=== PATIENT | male | born 1935 | race Caucasian/White ===

== ENCOUNTER 2018-08-25 12:09 | Inpatient (IN) | payer MEDICARE, OTHER ==
[~2018-08-25] VITALS: Ht 165.1 cm; Wt 68.0 kg
[2018-08-25 12:20] VITALS: BP 137/86
--- NOTE | 2018-08-25 13:15 | NUR ---
REASSESSED PT WITH NO SIGNIFICANT CHANGES/VITAL SIGNS STABLE.
--- NOTE | 2018-08-25 14:54 | NUR ---
PT AMBULATED TO ER BED 02
--- NOTE | 2018-08-25 15:03 | NUR ---
PATIENT PRESENTS TO ED WITH C/O LEFT AB PAIN AND LEFT BACK PAIN , POSSIBILE KIDNEY STONE SENT FROM PCP, PMH: HTN . PT IS AAOX4 WITH EVEN AND STEADY GAIT; LUNGS CLEAR BL; HR EVEN AND REGULAR; PT DENIES ANY FEVER, CP, SOB, OR COUGH AT THIS TIME; SKIN IS PINK/WARM/DRY; PATIENT STATES PAIN OF 10/10 AT THIS TIME; VSS; PATIENT POSITIONED FOR COMFORT; HOB ELEVATED; BEDRAILS UP X2; BED DOWN. ER MD MADE AWARE OF PT STATUS.
--- NOTE | 2018-08-25 15:07 | NUR ---
Patient being evaluated by DR. PIZANO at bedside.
[2018-08-25] MEDS ORDERED: NACL 0.9% 1,000 ML IV ONE (15:14)
[2018-08-25] MEDS ORDERED: NACL 0.9% 1,000 ML IV SCH (15:14)
[2018-08-25] MEDS ORDERED: ONDANSETRON 4 MG/2 ML VIAL IVP ONE (15:15)
[2018-08-25] MEDS ORDERED: KETOROLAC 15 MG/ML VIAL IVP ONE (15:15)
[2018-08-25 15:52] LABS: BASOPHILS % (AUTO) 0.3 % (0.0-2.0); EOSINOPHILS % (AUTO) 0.1 % (0.0-4.0); HEMATOCRIT 39.7 % (36-52); HEMOGLOBIN 12.9 g/dL (12.0-18.0); MEAN CORPUSCULAR HEMOGLOBIN 31 pg (27-31); MEAN CORPUSCULAR HGB CONC 33 g/dL (33-37); MEAN CORPUSCULAR VOLUME 95.7 fL (80-94); MONOCYTES % (AUTO) 7.9 % (1.7-9.3); NEUTROPHILS # (AUTO) 10.1 K/uL (1.8-7.7); NEUTROPHILS % (AUTO) 83.7 % (42.2-75.2); PLATELET COUNT (AUTO) 111 K/uL (140-450); RED BLOOD CELL COUNT(AUTO) 4.15 MIL/uL (4.20-6.10); RED CELL DISTRIBUTION WIDTH 13.3 % (11.6-13.7); WHITE BLOOD COUNT (AUTO) 12.1 K/uL (4.8-10.8)
--- NOTE | 2018-08-25 15:56 | NUR ---
UA AND BLOOD SENT TO LAB
[2018-08-25] MEDS: MORPHINE SULFATE 2 MG/ML SYR IVP ONE ×2 (16:05→17:00)
--- NOTE | 2018-08-25 16:10 | NUR ---
PT IS TAKEN TO CT.
[2018-08-25 16:18] LABS: APPEARANCE,URINE CLEAR (CLEAR); BILIRUBIN,URINE 1+ (NEGATIVE); BLOOD, URINE 3+ (NEGATIVE); COLOR,URINE YELLOW (YELLOW); LEUKOCYTE ESTERASE ,URINE NEGATIVE (NEGATIVE); NITRITE, URINE NEGATIVE (NEGATIVE); PH,URINE 5.5 (5.0-9.0); UGLUCOSE NEGATIVE (NEGATIVE)
[2018-08-25 16:21] LABS: ANION GAP 14.1 (8-16); CARBON DIOXIDE 22.7 mmol/L (21-32); CHLORIDE 105 mmol/L (98-107); CREATININE 1.7 mg/dL (0.7-1.3); GLUCOSE 107 mg/dL (74-106); POTASSIUM 4.8 mmol/L (3.5-5.1); SODIUM SERUM 137 mmol/L (136-145); UREA NITROGEN, BLOOD 23 mg/dL (7-18)
[2018-08-25 16:26] LABS: ALBUMIN 3.7 g/dL (3.4-5.0); AMYLASE 63 U/L (25-115); ASPARTATE AMINOTRANSFERASE 16 U/L (15-37); LIPASE 249 U/L (73-393); MAGNESIUM 2.2 mg/dL (1.8-2.4); TOTAL BILIRUBIN 2.1 mg/dL (0.0-1.0)
[2018-08-25 17:02] LABS: RBC,URINE 11-20 (MOD) /HPF (0-5); WBC,URINE NONE SEEN /HPF (0-5)
[2018-08-25] MEDS ORDERED: METOCLOPRAMIDE 10 MG/2 ML INJ VIAL IVP ONE (17:55)
[2018-08-25] MEDS ORDERED: MORPHINE SULFATE 4 MG/ML SYR IM ONE (17:55)
[2018-08-25] MEDS ORDERED: MORPHINE SULFATE 2 MG/ML SYR IVP PRN (18:20)
[2018-08-25] MEDS ORDERED: ONDANSETRON 4 MG/2 ML VIAL IM/IVP PRN (18:20)
[2018-08-25] MEDS ORDERED: DOCUSATE SODIUM 100 MG GELCAP PO PRN (18:20)
[2018-08-25] MEDS ORDERED: ACETAMINOPHEN 325 MG TAB PO PRN (18:20)
--- NOTE | 2018-08-25 18:49 | NUR ---
IVP MEDS GIVEN GIVEN FOR PAIN 12/17-NADR AT THIS TIME. PAIN POST IVP MEDS NOW 07/20. NSR W/O ECT, FAMILY AT BEDSIDE. PT AWITING ADMIT TO [facility] MED/SURG
--- NOTE | 2018-08-25 18:57 | NUR ---
Pt transferred to Med/Surg via BED WITH ZACKARY DUGGAN.
[2018-08-25] MEDS ORDERED: [UNRECOGNIZED DRUG - CODE] PO (18:58)
[2018-08-25] MEDS ORDERED: TAMS0.4C96 PO (18:58)
[2018-08-25] MEDS: NACL 0.9% 1,000 ML IV SCH (19:05)
--- NOTE | 2018-08-25 19:05 | NUR ---
Pt transferred to Med/Surg ROOM 112A via GURNEY, REPORT GIVEN TO ZACKARY GATICA AT BEDSIDE. PT IS IN STABLE CONDITION AT THIS TIME, ALL BELONGINGS GOES WITH PT.
--- NOTE | 2018-08-25 19:05 | NUR ---
RECEIVED REPORT FROM BAGGAGEMANZACKARY DUGGAN FOR CONTINUITY OF CARE. PT IS A/OX4, ON ROOM AIR. PT ABLE TO MAKE NEEDS KNOWN, AND ABLE TO FOLLOW COMMANDS. PT AMBULATES WITH STEADY GAIT. PT SKIN IS INTACT. PT HAS A 18G IV TO RIGHT AC, ASYMPTOMATIC AND INTACT. VITAL SIGNS WITHIN NORMAL LIMITS. PT STABLE, DENIES PAIN, NO SIGNS OF DISTRESS NOTED AT THIS TIME. PT POSITIONED FOR COMFORT. BED IN LOWEST POSITION, BED ALARM ON. WILL CONTINUE TO MONITOR. OBTAINED MRSA SWAB AND SENT TO LAB.
[2018-08-25] MEDS ORDERED: KETOROLAC 15 MG/ML VIAL IVP PRN (19:10)
[2018-08-25 19:17] LABS: CHOL/HDL RATIO 3.2 (1-4.5); THYROID STIMULATING HORMONE 1.22 uIU/mL (0.34-3.74)
[2018-08-25 19:25] LABS: PROTHROMBIN TIME 9.9 secs (10.8-13.4)
[2018-08-25 20:00] VITALS: BP 110/83
[2018-08-25] MEDS ORDERED: TAMSULOSIN 0.4 MG CAP PO SCH (20:00)
[2018-08-25] MEDS ORDERED: AMLO-372 PO (20:12)
--- NOTE | 2018-08-25 20:20 | NUR ---
PT ASKED FOR FOOD. OBTAINED SANDWICH FROM ENVIRONMENTAL PROGRAM MANAGER AND GAVE TO PT ALONG WITH WATER AND JUICE.
[2018-08-25] MEDS ORDERED: VALSARTAN 80 MG TAB PO SCH (20:30)
[2018-08-25] MEDS ORDERED: amLODIPine 5 MG TAB PO SCH (20:30)
[2018-08-25] MEDS ORDERED: amLODIPine 5 MG TAB ONE (21:22)
[2018-08-25] MEDS: TAMSULOSIN 0.4 MG CAP PO SCH (21:28)
--- NOTE | 2018-08-25 21:30 | NUR ---
ADMINISTERED SCHEDULED MEDICATIONS, PT TOLERATED WELL. VALSARTAN NOT AVAILABLE IN UNIT, CURRENCY MACHINE OPERATOR WAS CALLED AND HE WILL TRY TO BRING MEDICATION IF AVAILABLE.
--- NOTE | 2018-08-25 22:11 | NUR ---
RESIDENTIAL PROGRAM WORKER INFORMED ME MEDICATION WAS NOT AVAILABLE. PT STATES HE USUALLY ONLY TAKES ONE B/P MEDICATION AND FEELS MORE COMFORTABLE THAT WAY.
[2018-08-26] VITALS: BP 107/56
--- NOTE | 2018-08-26 | NUR ---
VITAL SIGNS WITHIN NORMAL LIMITS. PT STABLE, DENIES PAIN, NO SIGNS OF DISTRESS NOTED AT THIS TIME. PT POSITIONED FOR COMFORT. BED IN LOWEST POSITION, BED ALARM ON. WILL CONTINUE TO MONITOR.
--- NOTE | 2018-08-26 03:15 | NUR ---
NO SIGNS OF DISTRESS NOTED AT THIS TIME. BED IN LOWEST POSITION, BED ALARM ON. WILL CONTINUE TO MONITOR.
[2018-08-26] MEDS: NACL 0.9% 1,000 ML IV SCH ×3 (05:30→23:23)
--- NOTE | 2018-08-26 05:45 | NUR ---
INSTRUCTED PT ON STRAINING URINE AND REASON BEHIND IT. PT VERBALIZED UNDERSTANDING.
--- NOTE | 2018-08-26 06:30 | NUR ---
PT CALLED FOR "BEEPING IV". IV PUMP ALARM SAID PRESSURE HIGH SO INSTRUCTED PT TO KEEP ARM STRAIGHT DUE TO POSITION OF IV AT AC. PT VERBALIZED UNDERSTANDING.
[2018-08-26 06:40] LABS: BASOPHILS # (AUTO) 0.1 K/uL (0.00-0.22); BASOPHILS % (AUTO) 0.7 % (0.0-2.0); EOSINOPHILS # (AUTO) 0.1 K/uL (0-0.4); EOSINOPHILS % (AUTO) 1.6 % (0.0-4.0); HEMATOCRIT 35.8 % (36-52); LYMPHOCYTES # (AUTO) 1.3 K/uL (2.0-11.5); MEAN CORPUSCULAR HEMOGLOBIN 32 pg (27-31); MEAN CORPUSCULAR HGB CONC 34 g/dL (33-37); MEAN CORPUSCULAR VOLUME 95.8 fL (80-94); MONOCYTES # (AUTO) 0.7 K/uL (0.8-1.0); MONOCYTES % (AUTO) 8.5 % (1.7-9.3); NEUTROPHILS # (AUTO) 5.5 K/uL (1.8-7.7); NEUTROPHILS % (AUTO) 72.2 % (42.2-75.2); PLATELET COUNT (AUTO) 98 K/uL (140-450); RED BLOOD CELL COUNT(AUTO) 3.74 MIL/uL (4.20-6.10); RED CELL DISTRIBUTION WIDTH 13.1 % (11.6-13.7); WHITE BLOOD COUNT (AUTO) 7.7 K/uL (4.8-10.8)
[2018-08-26 06:43] LABS: ANION GAP 12.9 (8-16); CHLORIDE 109 mmol/L (98-107); CREATININE 1.9 mg/dL (0.7-1.3); GLUCOSE 92 mg/dL (74-106); MAGNESIUM 2.1 mg/dL (1.8-2.4); PHOSPHORUS 3.1 mg/dL (2.5-4.9); POTASSIUM 4.9 mmol/L (3.5-5.1); SODIUM SERUM 141 mmol/L (136-145); UREA NITROGEN, BLOOD 25 mg/dL (7-18)
--- NOTE | 2018-08-26 07:15 | NUR ---
ENDORSED PT TO DAY SHIFT ZACKARY ALLEN FOR CONTINUITY OF CARE. PT IN STABLE CONDITION.
--- NOTE | 2018-08-26 07:17 | NUR ---
RECEIVED BEDSIDE REPORT FROM HALAL MEAT PACKER NURSE CONTINUITY OF CARE. A/OX4, ON ROOM AIR. DENIES PAIN. NO DISTRESS NOTED AT INITIAL ASSESSMENT. PT ABLE TO MAKE NEEDS KNOWN, AND ABLE TO FOLLOW COMMANDS. SKIN INTACT AND CLEAN. IV ON RAC 18G, ASYMPTOMATIC AND PATENT, INFUSING PER MD ORDER. ABLE AMBULATES WITH STEADY GAIT. VITAL SIGNS TAKEN. PT POSITIONED FOR COMFORT AND READY FOR BREAKFAST. URANAL AT BEDSIDE. INSTRUCTED PATIENT TO USE URANAL FOR URINATION FOR STRAIN URINE. PATIENT VERBALIZED UNDERSTANDING. DISCUSSED PLAN OF CARE WITH PATIENT, PATIENT VERBALIZED UNDERSTANDING. BED IN LOW POSITION AND CALL LIGHT WITHIN REACH. EDUCATED PATIENT TO USE CALL LIGHT FOR ANY ASSISTANCE.
[2018-08-26 08:00] VITALS: BP 127/68
--- NOTE | 2018-08-26 08:49 | NUR ---
PATIENT HAS BEEN SCREENED AND CATEGORIZED MODERATE NUTRITION RISK. PATIENT WILL BE SEEN WITHIN 3-5 DAYS OF ADMISSION. 08/28/18[address]
[2018-08-26] MEDS ORDERED: KETOROLAC 15 MG/ML VIAL IVP SCH (08:55)
[2018-08-26] MEDS ORDERED: LACTOBACILLUS RHAMNOSUS GG 1 EACH CAP PO SCH (09:04)
[2018-08-26] MEDS: amLODIPine 5 MG TAB PO SCH (09:41)
[2018-08-26] MEDS: VALSARTAN 80 MG TAB PO SCH (09:41)
--- NOTE | 2018-08-26 09:45 | NUR ---
ADMINISTERED MEDS PER MD ORDER. PATIENT TOLERATED WELL. PATIENT IS SITTING UP ON BED AND WATCHING TV. DENIES PAIN. NO SIGNS OF DISTRESS NOTED. EMPTIED 200ML URINE FROM URANAL INTO A STRAINER. NO CALCULUS OBSERVED.
[2018-08-26] MEDS: HYDROcodone/APAP 7.5/325 MG 1 TAB PO PRN ×2 (10:17→15:52)
--- NOTE | 2018-08-26 10:17 | NUR ---
PATIENT COMPLAINED OF 4/10 PAIN. ADMINISTERED PRN PAIN MED. BED POSITIONED COMFORTABLY. AND PATIENT SAID THAT HE IS TRYING TO GET SOME REST.
--- NOTE | 2018-08-26 11:20 | NUR ---
PATIENT IS RESTING ON BED. HE STATES THAT "MY PAIN IS GETTING BETTER. IT'S LEVEL 1. I AM OK WITH IT." NO SIGNS OF DISTRESS NOTED.
[2018-08-26] MEDS ORDERED: MORPHINE SULFATE 4 MG/ML SYR IVP PRN (12:50)
--- NOTE | 2018-08-26 12:54 | NUR ---
PATIENT IS SITTING UP ON BED AND TALKING TO VISITORS AT BEDSIDE. DENIES PAIN. NO SIGNS OF DISTRESS NOTED.
--- NOTE | 2018-08-26 14:42 | NUR ---
PATIENT TOOK A SHOWER WITH ASSIST FROM NOLBERTO. PATIENT DENIES PAIN. NO SIGNS OF DISTRESS NOTED.
--- NOTE | 2018-08-26 15:00 | NUR ---
EMPTIED 100ML URINE FROM URANAL INTO A STRAINER. NO CALCULUS OBSERVED. PATIENT'S FAMILY IS AT BEDSIDE AND TALKING TO PATIENT. PATIENT DENIES PAIN.
--- NOTE | 2018-08-26 15:53 | NUR ---
PATIENT COMPLAINED OF PAIN 4. ADMINISTERED PRN PAIN MED. NOLBERTO AND DAUGHTER KATE ARE AT BEDSIDE.
[2018-08-26 16:00] VITALS: BP 144/72
--- NOTE | 2018-08-26 16:49 | NUR ---
IV ON R AC INFILTRATED, D/C IV, CANNULA INTACT, NO BLEEDING AT INSERT SITE. STARTED IV ON L HAND 22G, ASYMPTOMATIC AND PATENT, INFUSING PER MD ORDER. PATIENT TOLERATED WELL.
--- NOTE | 2018-08-26 17:21 | NUR ---
DR HERNÁNDEZ IS TALKING TO PATIENT AT BEDSIDE.
[2018-08-26] MEDS: KETOROLAC 15 MG/ML VIAL IVP SCH ×2 (18:00→23:20)
--- NOTE | 2018-08-26 19:03 | NUR ---
ENDORSED PATIENT AT BEDSIDE TO BRIM GREASER OPERATOR NURSE FOR CONTINUITY OF CARE. PATIENT IS IN STABLE CONDITION.
--- NOTE | 2018-08-26 19:07 | NUR ---
RECEIVED ENDORSEMENT FROM AM SHIFT RN; PATIENT A/Ox4, ABLE TO MAKE NEEDS KNOWN AND AMBULATORY. PATIENT SITTING ON BEDSIDE TALKING WITH RELATIVES. INTRODUCED SELF, UPDATED BOARD. NO SOB OR DISTRESS NOTED. IV SITE ON LEFT HAND, 22 GAUGE, INTACT. SKIN INTACT. INSTRUCTED PATIENT TO USE URANAL FOR URINATION. PATIENT VERBALIZED UNDERSTANDING. DISCUSSED PLAN OF CARE WITH PATIENT, PATIENT VERBALIZED UNDERSTANDING. BED IN LOW POSITION, CALL LIGHT WITHIN REACH. INITIAL ASSESSMENT DONE. WILL CONTINUE TO MONITOR.
--- NOTE | 2018-08-26 21:00 | NUR ---
DUE MEDS GIVEN, WATCHING TV. NO DISTRESS NOTED.
[2018-08-26] MEDS: TAMSULOSIN 0.4 MG CAP PO SCH (21:13)
--- NOTE | 2018-08-26 22:10 | NUR ---
ROUNDS MADE, PATIENT WATCHING TV, NO DISTRESS NOTED.
--- NOTE | 2018-08-26 23:31 | NUR ---
DUE MEDS GIVEN AND IVF REPLENISHED. PATIENT WATCHING TV.
[2018-08-27] VITALS: BP 122/74
--- NOTE | 2018-08-27 01:50 | NUR ---
FREQUENT CHECKS MADE. PATIENT ASLEEP, NO DISTRESS NOTED.
--- NOTE | 2018-08-27 04:02 | NUR ---
CHECKS MADE. PATIENT ASLEEP, VISIBLE CHEST RISE AND FALL NOTED.
[2018-08-27] MEDS: KETOROLAC 15 MG/ML VIAL IVP SCH ×2 (06:00→12:00)
[2018-08-27 07:09] LABS: BASOPHILS % (AUTO) 0.7 % (0.0-2.0); EOSINOPHILS # (AUTO) 0.2 K/uL (0-0.4); EOSINOPHILS % (AUTO) 2.8 % (0.0-4.0); HEMATOCRIT 39.1 % (36-52); HEMOGLOBIN 13.2 g/dL (12.0-18.0); LYMPHOCYTES # (AUTO) 1.4 K/uL (2.0-11.5); LYMPHOCYTES % (AUTO) 20.4 % (20.5-51.1); MEAN CORPUSCULAR HEMOGLOBIN 33 pg (27-31); MEAN CORPUSCULAR HGB CONC 34 g/dL (33-37); MEAN CORPUSCULAR VOLUME 97.1 fL (80-94); MONOCYTES # (AUTO) 0.6 K/uL (0.8-1.0); MONOCYTES % (AUTO) 8.8 % (1.7-9.3); NEUTROPHILS # (AUTO) 4.8 K/uL (1.8-7.7); NEUTROPHILS % (AUTO) 67.3 % (42.2-75.2); PLATELET COUNT (AUTO) 99 K/uL (140-450); RED BLOOD CELL COUNT(AUTO) 4.03 MIL/uL (4.20-6.10); WHITE BLOOD COUNT (AUTO) 7.1 K/uL (4.8-10.8)
--- NOTE | 2018-08-27 07:50 | NUR ---
RECEIVED BEDSIDE REPORT FROM SOFT WORK WRAPPER EXAMINER NURSE. PATIENT AAOX4. PATIENT ON ROOM AIR, NO DISTRESS NOTED. PATIENT ON MED SURGE AND STANDARD PRECAUTIONS IN PLACE. SKIN INTACT. IV ON L HAND 22 G INFUSING NS AT 100. IV ASYMPTOMATIC PATENT AND INTACT. BED IN LOW POSITION, CALL LIGHT WITHIN REACH. WILL CONTINUE TO MONITOR.
[2018-08-27 08:00] VITALS: BP 161/77
[2018-08-27 08:04] LABS: ANION GAP 14.9 (8-16); CARBON DIOXIDE 23.6 mmol/L (21-32); CHLORIDE 109 mmol/L (98-107); CREATININE 1.4 mg/dL (0.7-1.3); GLUCOSE 87 mg/dL (74-106); POTASSIUM 4.5 mmol/L (3.5-5.1); SODIUM SERUM 143 mmol/L (136-145); UREA NITROGEN, BLOOD 22 mg/dL (7-18)
[2018-08-27 08:13] LABS: MAGNESIUM 1.9 mg/dL (1.8-2.4); PHOSPHORUS 2.9 mg/dL (2.5-4.9)
[2018-08-27] MEDS ORDERED: LACTOBACILLUS RHAMNOSUS GG 1 EACH CAP PO SCH (09:00)
[2018-08-27] MEDS: amLODIPine 5 MG TAB PO SCH (09:00)
[2018-08-27] MEDS: VALSARTAN 80 MG TAB PO SCH (09:00)
--- NOTE | 2018-08-27 09:30 | NUR ---
ADMINISTERED SCHEDULED MEDS. PATIENT TOLERATED WELL. WILL CONTINUE TO MONITOR.
[2018-08-27] MEDS ORDERED: ACET-1182 PO (09:56)
[2018-08-27] MEDS ORDERED: VALS80TA2 PO (09:56)
[2018-08-27] MEDS: NACL 0.9% 1,000 ML IV SCH (10:19)
[2018-08-27] MEDS ORDERED: VITAMIN D 400 IU TAB PO SCH (10:35)
--- NOTE | 2018-08-27 12:18 | NUR ---
FAMILY AT BEDSIDE. PATIENT ON ROOM AIR, NO DISTRESS NOTED. WILL CONTINUE TO MONITOR.
--- NOTE | 2018-08-27 13:40 | NUR ---
BP 135/74 AND HR 83. PATIENT RESTING WITH FAMILY AT BEDSIDE. DOCTOR AWARE OF STABLE BP. WILL CONTINUE TO MONITOR.
[2018-08-27] MEDS ORDERED: DOCU-299 PO (13:46)
--- NOTE | 2018-08-27 13:54 | NUR ---
PER REQUEST OF KAMI FROM [facility], FAXED DISCHARGE SUMMARY TO HER AT [phone].
[2018-08-27] MEDS ORDERED: BISACODYL 5 MG TABEC PO SCH (14:00)
--- NOTE | 2018-08-27 15:49 | NUR ---
PATIENT AMBULATED TO BATHROOM. PATIENT ONLY URINATED. WILL CONTINUE TO MONITOR.
[2018-08-27 16:00] VITALS: BP 151/78
[2018-08-27] MEDS ORDERED: SODIUM PHOSPHATE 118 ML ENEM RC SCH (17:15)
--- NOTE | 2018-08-27 17:31 | NUR ---
ADMINISTERED FLEET ENEMA PER PATIENT'S REQUEST AND ORDERED. PATIENT TOLERATED WELL. WILL CONTINUE TO MONITOR.
--- NOTE | 2018-08-27 19:10 | NUR ---
DISCHARGE INSTRUCTIONS GIVEN WITH PACKET OF MEDICAL RECORD. FLU AND PNA VACCINE UP TO DATE 03/2018. EDUCATED PATIENT TO ATTEND SCHEDULED APPOINTMENT ALREADY MADE BY DOCTOR. EDUCATED PATIENT ON NEW LIST OF NEW AND CONTINUED MEDICATIONS. PATIENT AWARE PRESCRIBED MEDS SENT TO PREFERRED PHARMACY. SKIN INTACT. INSTRUCTED TO RETURN TO NEAREST ER WHEN SYMPTOMS LIKE SOB, FEVER, PAIN, ETC OCCUR. PATIENT VERBALIZED UNDERSTANDING. REMOVED WRIST BANDS AND IV, IV TIP INTACT. ANSWERED ALL QUESTIONS AND CONCERNS.
[2018-08-28] MEDS ORDERED: CALCIUM CARB 600 MG TAB PO SCH (09:00)
[2018-08-28] MEDS ORDERED: VITAMIN D 400 IU TAB PO SCH (09:00)
== END 2018-08-27 19:10 | disposition home or self-care (01) | DRG 683 ==
LOC: MED 12:09 → MTU 18:21
PROVIDERS: ADMIT General Practice; ATTEND General Practice
DX: N17.0 Acute kidney failure with tubular necrosis (principal); R65.10 Systemic inflammatory response syndrome (SIRS) of non-infectious origin without acute organ dysfunction; N13.2 Hydronephrosis with renal and ureteral calculous obstruction; I10 Essential (primary) hypertension; F43.9 Reaction to severe stress, unspecified; E83.51 Hypocalcemia; E87.8 Other disorders of electrolyte and fluid balance, not elsewhere classified; R73.9 Hyperglycemia, unspecified; Z90.89 Acquired absence of other organs; Z79.899 Other long term (current) drug therapy; Z82.49 Family history of ischemic heart disease and other diseases of the circulatory system
CPT/HCPCS: 36415; 71045; 80048; 80053; 81001; 82150; 83036; 83690; 83735; 83880; 84100; 84443; 84484; 84550; 85025; 85610; 85730; 87081; 93005; 96361; 96374; 96375; 97110; 97116; 97530; 99285; J0696; J1885; J2270; J2405; J2765; J7030; J7060